=== PATIENT | female | born 1985 | race Caucasian/White ===

== ENCOUNTER 2020-07-25 13:48 | Emergency (ER) | payer OTHER, SELFPAY ==
[2020-07-25 13:55] VITALS: BP 137/65; PULSE 118; RESP 16; TEMP 36.4; O2SAT 99; BMI 23.3
--- NOTE | 2020-07-25 15:12 | PC.NURSE ---
small green lesion present on patinets thumb. Pt denies recent trauma, reports past trauma to the same finger.
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
== END 2020-07-25 15:42 | disposition home or self-care (01) ==
PROVIDERS: Emergency Provider Nurse Practitioner Family
DX: L60.9 Nail disorder, unspecified (principal)
CPT/HCPCS: 87070; 87075; 87077; 87186; 87205; 99281; 99282